=== PATIENT | male | born 1975 | race Caucasian/White ===

== ENCOUNTER 2017-12-25 16:21 | Emergency (ER) | payer OTHER ==
[2017-12-25] MEDS ORDERED: PROL80 PO (16:32)
[2017-12-25] MEDS ORDERED: BUPR200T34 PO (16:32)
[2017-12-25] MEDS ORDERED: LEVO100T95 PO (16:32)
--- NOTE | 2017-12-25 16:57 | ER Report ---
History and Physical Time Seen By MD: 16:46 Hx. of Stated Complaint: PT HERE FOR DETOX. HPI/ROS CHIEF COMPLAINT: detox from alcohol HISTORY OF PRESENT ILLNESS: PT states that he has approx 22 years of alochol abuse. Pt states that his last drink was an hour ago or so. PT wants to stop. Pt last went to rehab about 2 ys ago and states he was sober for 5 months but has been drinking ever since. + epigastric disomfort. no nausea.no vomiting or change in bm. Pt does chew tobacco but denies any other drug usage. Not sucidal or homicidal. REVIEW OF SYSTEMS: Constitutional: No fever, no chills. Eyes: No discharge. ENT: No sore throat. Cardiovascular: No chest pain, no palpitations. Respiratory: No cough, no shortness of breath. Gastrointestinal: N+ abdominal pain, no vomiting. Genitourinary: No hematuria. Musculoskeletal: No back pain. Skin: No rashes. Neurological: No headache. Allergies: Coded Allergies: trazodone (Verified Allergy, Unknown, 12/25/17) Home Meds Reported Medications Propranolol Hcl (PROPRANOLOL HCL) 80 Mg Capcr, 80 MG PO QDAY 12/25/17 Levothyroxine Sodium (SYNTHROID) 100 Mcg Tablet, 100 MCG PO QDAY 12/25/17 Bupropion HCl (Bupropion HCl ER) 200 Mg Tablet.er, QDAY 12/25/17 Past Medical/Surgical History Pmhx: thyroid ds Pshx:non contrib Reviewed Nurses Notes: Yes Old Medical Records Reviewed: Yes Hx Substance Use Disorder: No Hx Alcohol Use: Yes (PINT DAILY, SOMETIMES MORE) Constitutional Vital Sign - Last 24 Hours 12/25/17 16:27 Temp 97.9 Pulse 106 Resp 20 B/P (MAP) 143/96 Pulse Ox 94 O2 Delivery Room Air Physical Exam General Appearance: The patient is alert, has no immediate need for airway protection and no signs of toxicity. Eyes: Pupils equal and round no pallor or injection, EOMI ENT: no pharyngeal erythema or exudates, Mucous membranes are moist Respiratory: There are no retractions, lungs are clear to auscultation. Cardiovascular: Tachy. pulses are equal and symmetrical Gastrointestinal: Abdomen is soft and non tender, no masses, bowel sounds normal, no guarding, no rigidity or rebound Neurological: Cranial nerves II-XII grossly intact, no sensory or motor loss Skin: Warm and dry, no rashes. Musculoskeletal: Neck is supple non tender, no vertebral tenderness Extremities are nontender, non swollen and have full range of motion. DIFFERENTIAL DIAGNOSIS: After history and physical exam differential diagnosis was considered for dehydrated, electrolyte abnl, gastritits, pancreatitis, behavioral disorder Medical Decision Making Data Points Result Diagram: 12/25/17 1703 12/25/17 1703 Laboratory Hematology Test 12/25/17 17:03 12/25/17 18:00 Red Blood Count 5.90 M/uL (4.00-5.60) Mean Corpuscular Volume 84.2 fL (80.0-96.0) Mean Corpuscular Hemoglobin 30.1 pg (26.0-33.0) Mean Corpuscular Hemoglobin Concent 35.7 g/dL (32.0-36.0) Red Cell Distribution Width 14.2 % (11.5-14.5) Mean Platelet Volume 8.8 fL (7.2-11.1) Neutrophils (%) (Auto) 51.2 % (39.4-72.5) Lymphocytes (%) (Auto) 39.3 % (17.6-49.6) Monocytes (%) (Auto) 4.9 % (4.1-12.4) Eosinophils (%) (Auto) 4.1 % (0.4-6.7) Basophils (%) (Auto) 0.5 % (0.3-1.4) Nucleated RBC Relative Count (auto) 0.1 /100WBC Neutrophils # (Auto) 3.0 K/uL (2.0-7.4) Lymphocytes # (Auto) 2.3 K/uL (1.3-3.6) Monocytes # (Auto) 0.3 K/uL (0.3-1.0) Eosinophils # (Auto) 0.2 K/uL (0.0-0.5) Basophils # (Auto) 0.0 K/uL (0.0-0.1) Nucleated RBC Absolute Count (auto) 0.00 K/uL Sodium Level 148 mmol/L (137-145) Potassium Level 3.1 mmol/L (3.5-5.0) Chloride Level 108 mmol/L (98-107) Carbon Dioxide Level 24 mmol/L (22-30) Blood Urea Nitrogen 4 mg/dl (9-21) Creatinine 0.90 mg/dl (0.66-1.25) Glomerular Filtration Rate Calc > 60.0 Random Glucose 102 mg/dl (75-110) Calcium Level 8.5 mg/dl (8.4-10.2) Magnesium Level 2.1 mg/dl (1.7-2.2) Total Bilirubin 0.4 mg/dl (0.2-1.3) Aspartate Amino Transf (AST/SGOT) 22 U/L (0-35) Alanine Aminotransferase (ALT/SGPT) 23 U/L (0-56) Alkaline Phosphatase 76 U/L (0-126) Total Protein 7.6 g/dl (6.3-8.2) Albumin 4.7 g/dl (3.5-5.0) Lipase 180 U/L (23-300) Salicylates Level < 10 mg/L Salicylate Last Dose Date unknown Acetaminophen Level < 10 ug/ml Serum Alcohol 271 mg/dl Chemistry Test 12/25/17 17:03 12/25/17 18:00 White Blood Count 5.8 k/uL (4.5-11.0) Red Blood Count 5.90 M/uL (4.00-5.60) Hemoglobin 17.8 g/dL (14.0-18.0) Hematocrit 49.7 % (42.0-52.0) Mean Corpuscular Volume 84.2 fL (80.0-96.0) Mean Corpuscular Hemoglobin 30.1 pg (26.0-33.0) Mean Corpuscular Hemoglobin Concent 35.7 g/dL (32.0-36.0) Red Cell Distribution Width 14.2 % (11.5-14.5) Platelet Count 258 K/uL (150-450) Mean Platelet Volume 8.8 fL (7.2-11.1) Neutrophils (%) (Auto) 51.2 % (39.4-72.5) Lymphocytes (%) (Auto) 39.3 % (17.6-49.6) Monocytes (%) (Auto) 4.9 % (4.1-12.4) Eosinophils (%) (Auto) 4.1 % (0.4-6.7) Basophils (%) (Auto) 0.5 % (0.3-1.4) Nucleated RBC Relative Count (auto) 0.1 /100WBC Neutrophils # (Auto) 3.0 K/uL (2.0-7.4) Lymphocytes # (Auto) 2.3 K/uL (1.3-3.6) Monocytes # (Auto) 0.3 K/uL (0.3-1.0) Eosinophils # (Auto) 0.2 K/uL (0.0-0.5) Basophils # (Auto) 0.0 K/uL (0.0-0.1) Nucleated RBC Absolute Count (auto) 0.00 K/uL Glomerular Filtration Rate Calc > 60.0 Calcium Level 8.5 mg/dl (8.4-10.2) Magnesium Level 2.1 mg/dl (1.7-2.2) Total Bilirubin 0.4 mg/dl (0.2-1.3) Aspartate Amino Transf (AST/SGOT) 22 U/L (0-35) Alanine Aminotransferase (ALT/SGPT) 23 U/L (0-56) Alkaline Phosphatase 76 U/L (0-126) Total Protein 7.6 g/dl (6.3-8.2) Albumin 4.7 g/dl (3.5-5.0) Lipase 180 U/L (23-300) Salicylates Level < 10 mg/L Salicylate Last Dose Date unknown Acetaminophen Level < 10 ug/ml Serum Alcohol 271 mg/dl Toxicology Test 12/25/17 17:03 12/25/17 18:00 Salicylates Level < 10 mg/L Salicylate Last Dose Date unknown Acetaminophen Level < 10 ug/ml Serum Alcohol 271 mg/dl Urinalysis Test 12/25/17 18:00 ED Course/Re-evaluation Clinical Indication for ER IV: Hydration, IV Access ED Course check labs and give fluids 12/25/2017 5:53:52 pm Pts potassium low will replace 12/25/2017 6:14:[address] Hernadez who will admit. Decision to Disposition Date: Dec 25, 2017 Decision to Disposition Time: 18:14 Depart Departure Latest Vital Signs Vital Signs Date Time Temp Pulse Resp B/P (MAP) Pulse Ox O2 Delivery O2 Flow Rate FiO2 12/25/17 16:27 97.9 106 20 143/96 94 Room Air Impression: Primary Impression: Alcohol abuse Additional Impressions: ALCOHOL DEPENDENCE WITH INTOXICATION, UNSPECIFIED HYPOKALEMIA Condition: Condition Unchanged Disposition: XFER TO [facility] Problem Qualifiers SUZE DIXON DO Dec 25, 2017 16:56
[2017-12-25] MEDS ORDERED: THIAMINE HCL(*) 200 MG/2 ML IN 100 MG, FOLIC ACID(*) 50 MG/10 ML INJ 1 MG, MULTIVITAMIN... IV ONE (17:01)
[2017-12-25 17:39] LABS: PLATELET COUNT, AUTOMATED 258 K/uL (150-450)
[2017-12-25] MEDS ORDERED: POTASSIUM CHL 20 MEQ TABCR PO ONE (17:50)
[2017-12-25 18:30] VITALS: BP 146/94
[2017-12-26] MEDS ORDERED: LISI20TA29 PO (09:14)
== END 2017-12-25 18:55 ==
LOC: ER 16:41
DX: F10.220 Alcohol dependence with intoxication, uncomplicated (principal); E87.6 Hypokalemia
CPT/HCPCS: 80305; 80320; 80329; 81001; 83690; 83735; 84443; 85025; 96365; 99284; J3411; J3475; J7030; 82040; 82247; 82310; 82374; 82435; 82565; 82947; 84075; 84132; 84155; 84295; 84450; 84460; 84520

== ENCOUNTER 2017-12-25 18:48 | Inpatient (IN) | payer OTHER ==
[~2017-12-25] VITALS: Ht 177.8 cm; Wt 79.4 kg
[~2017-12-25 18:48] MED LIST: BUPR200T34 PO; LEVO100T95 PO; PROL80 PO
[2017-12-25] MEDS ORDERED: MAG HYD/AL HYD/SIMETH 30ML UDC PO PRN (18:50)
[2017-12-25 19:09] VITALS: BP 148/98
[2017-12-25] MEDS: NICOTINE POLACRILEX 2 MG GUM PO PRN (19:27)
[2017-12-25] MEDS: DIAZEPAM 10 MG TAB PO PRN ×2 (19:27→23:59)
[2017-12-25] MEDS: PROPRANOLOL HCL 20 MG TAB PO SCH (20:53)
[2017-12-25 23:55] VITALS: BP 123/67
[2017-12-26] VITALS (7 sets, daily range): BP systolic 105–150; BP diastolic 65–90
[2017-12-26] MEDS: DIAZEPAM 10 MG TAB PO PRN ×5 (01:29→22:21)
[2017-12-26] MEDS: LEVOTHYROXINE SOD 0.1 MG TAB PO SCH (05:39)
[2017-12-26] MEDS: FOLIC ACID 1 MG TAB PO SCH (08:16)
[2017-12-26] MEDS: THIAMINE HCL 100 MG TAB PO SCH (08:16)
[2017-12-26] MEDS: PROPRANOLOL HCL 20 MG TAB PO SCH ×2 (08:16→20:56)
[2017-12-26] MEDS: MULTIVITAMINS TAB PO SCH (08:16)
[2017-12-26] MEDS ORDERED: PROPRANOLOL HCL LA 60 MG CAPCR PO SCH (09:00)
[2017-12-26] MEDS ORDERED: buPROPion SR 100 MG TABSR PO SCH (09:00)
[2017-12-26] MEDS ORDERED: LISI20TA29 PO (09:14)
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
[2017-12-26] MEDS: NICOTINE POLACRILEX 2 MG GUM PO PRN ×2 (15:59→21:51)
[2017-12-27 04:02] VITALS: BP 128/90
[2017-12-27] MEDS: DIAZEPAM 10 MG TAB PO PRN (04:21)
[2017-12-27] MEDS: LEVOTHYROXINE SOD 0.1 MG TAB PO SCH (04:21)
[2017-12-27 06:37] LABS: PLATELET COUNT, AUTOMATED 196 K/uL (150-450)
[2017-12-27] MEDS: PROPRANOLOL HCL 20 MG TAB PO SCH (08:27)
[2017-12-27] MEDS: FOLIC ACID 1 MG TAB PO SCH (08:27)
[2017-12-27] MEDS: THIAMINE HCL 100 MG TAB PO SCH (08:27)
[2017-12-27] MEDS: MULTIVITAMINS TAB PO SCH (08:28)
[2017-12-27 08:30] VITALS: BP 138/88
[2017-12-27] MEDS: NICOTINE POLACRILEX 2 MG GUM PO PRN ×4 (08:42→14:38)
[2017-12-27] MEDS ORDERED: buPROPion SR 100 MG TABSR PO SCH (09:00)
[2017-12-27] MEDS ORDERED: MULT-1379 PO (12:08)
[2017-12-27] MEDS ORDERED: NICO-219 BC (12:10)
[2017-12-27] MEDS ORDERED: HYDR50CA48 PO (12:14)
[2017-12-27 13:00] VITALS: BP 124/82
[2017-12-28] MEDS ORDERED: buPROPion SR 100 MG TABSR PO SCH (09:00)
--- NOTE | 2017-12-28 18:06 | DISCHARGE SUMMARY ---
Patient was seen at approximately 0900 hours in the a.m. of December 27, 2017 for note concerning this dictation. FINAL DIAGNOSES PER DSM-V Alcohol use disorder severe. Rule out posttraumatic stress disorder. History of hypothyroidism. History of hypertension. Patient having supportive family. REASON FOR ADMISSION This is a very polite 42-year-old male. Patient was admitted on a voluntary basis for alcohol withdrawal treatment and subsequent entrance into alcohol rehab. Please see H and P for full details. Patient very pleasant on the unit, very cooperative, taking an active role in his treatment. Alcohol withdrawal was treated to completion and considered moderate in nature. Patient was given diazepam per [facility] protocol. Patient's meds were also looked at while the patient was on the unit. Minor alterations were made in outpatient meds. Patient continued to improve. Alcohol withdrawal was treated to completion and patient cooperated with staff in working to get to [place], [place] for [facility] rehab facility for alcoholism. PHYSICAL EXAMINATION GENERAL: Please see emergency room note. Notable for a 42-year-old male in no acute medical distress. VITAL SIGNS: At the time of admission, temperature 97.6, pulse 106, respiratory rate 20, blood pressure 143/96 and pulse oximetry 94 on room air. At the time of discharge from [facility], temperature 98.4, pulse 80, respiratory rate 16, blood pressure 124/82 and pulse oximetry 96 on room air. LABORATORY DATA TSH was 0.97 due to effects of interference with acute alcohol intoxication on TSH. It was redrawn on the [facility] Unit and found to still be in normal limits at 3.48. Free T4 was 0.95 and free T3 was pending at the time of this dictation in this patient who is currently taking 100 mcg of Synthroid. CBC was overall unremarkable. CMP notable for lipase in normal level, magnesium of 2.1 in normal range with a potassium low at 3.1. Hepatic function testing was intact. Urinalysis unremarkable. Toxicology screen was negative for substances of abuse with a serum alcohol level of 271 upon admission. MENTAL STATUS EXAMINATION AT THE TIME OF DISCHARGE GENERAL APPEARANCE, BEHAVIOR AND ATTITUDE: This is a very polite, cooperative 42-year-old male, certainly taking an active role in his treatment. Alcohol withdrawal considered complete. Patient indicating a full understanding of entering rehab program in [place], [place]. Patient making good eye contact. No bizarre mannerisms or tics. No periods of tearfulness. SPEECH: Within normal limits, regular rate, rhythm, volume and tone. MOOD: Described as good. AFFECT: Full and bright. . THOUGHT PROCESSES: Logical, goal directed. No loose associations or flight of ideas. THOUGHT CONTENT: Free of auditory or visual hallucinations, ideas of reference, thought broadcastings, delusions, obsessions, compulsions. Patient adamantly denying suicidal or homicidal ideation. SENSORIUM: Clear. COGNITION: Alert and oriented to person, place, time and situation. MEMORY: Immediate, recent and remote estimated intact. INTELLIGENCE: Average based on interview. INSIGHT AND JUDGMENT: Considered intact and appropriate for entrance into [facility] rehab program. RESULTS OF TESTING IMAGING: None. LABORATORY DATA: See above. CONSULTATIONS: None. TREATMENT Patient received medications, participated in individual and group therapy. HOSPITAL COURSE Patient was admitted for alcohol withdrawal treatment, which was managed and treated to completion via CIWA protocol and diazepam. Patient's outpatient medications were altered minimally. Patient continued to respond, was discharged to home. CONDITION OF PATIENT ON DISCHARGE Stable. Considered minimal risk to himself or others and appropriate for ongoing treatment at rehab center in [place]. DISPOSITION Patient again discharged to home in the care of his parents. Patient would follow up in [place]. DISCHARGE MEDICATIONS 1. Multivitamin with minerals daily. 2. Inderal 20 mg tablet twice daily a.m. and at bedtime. 3. Synthroid 100 mcg daily. 4. Wellbutrin SR 100 mg q.a.m. and 100 mg q.noon. 5. Patient encouraged to continue nicotine replacement and stop tobacco consumption. 6. Prescription for hydroxyzine 50-100 mg p.o. q.8 hours for anxiety and insomnia. Patient would continue to abstain from all alcohol. Crisis line was given should symptoms return. Risks, benefits and alternatives of the above discharge plan were discussed. Informed consent was given to proceed with above discharge plan by this competent patient and patient's parents, present at the time of discharge, with whom he lives. HAJA
== END 2017-12-27 16:30 | disposition home or self-care (01) | DRG 897 ==
LOC: BHS 18:48
PROVIDERS: ADMIT Psychiatry & Neurology Psychiatry; ATTEND Psychiatry & Neurology Psychiatry
DX: F10.230 Alcohol dependence with withdrawal, uncomplicated (principal); E03.9 Hypothyroidism, unspecified; I10 Essential (primary) hypertension; F43.12 Post-traumatic stress disorder, chronic; Y90.8 Blood alcohol level of 240 mg/100 ml or more; Z88.8 Allergy status to other drugs, medicaments and biological substances; Z81.1 Family history of alcohol abuse and dependence
CPT/HCPCS: 36415; 82040; 82247; 82310; 82374; 82435; 82565; 82947; 83735; 84075; 84132; 84155; 84295; 84439; 84443; 84450; 84460; 84481; 84520; 85025

== ENCOUNTER 2018-04-26 15:29 | Inpatient (IN) | payer OTHER ==
[~2018-04-26] VITALS: Ht 177.8 cm; Wt 81.6 kg
[~2018-04-26 15:29] MED LIST changes: +HYDR50CA48 PO; +LISI20TA29 PO; +MULT-1379 PO; +NICO-219 BC
[2018-04-26 15:55] VITALS: BP 130/97
[2018-04-26] MEDS ORDERED: DIAZEPAM 10 MG TAB PO PRN (16:15)
[2018-04-26] MEDS ORDERED: MAG HYD/AL HYD/SIMETH 30ML UDC PO PRN (16:15)
[2018-04-26] MEDS: DIAZEPAM 10 MG TAB PO PRN ×2 (16:53→20:58)
[2018-04-26] MEDS: NICOTINE POLACRILEX 2 MG GUM PO PRN (16:53)
[2018-04-26] MEDS ORDERED: hydrOXYzine PAMOATE 25 MG CAP PO PRN (19:00)
[2018-04-26 20:33] VITALS: BP 130/82
[2018-04-27 01:01] VITALS: BP 135/98
[2018-04-27] MEDS: LEVOTHYROXINE SOD 0.1 MG TAB PO SCH (06:14)
[2018-04-27 08:00] VITALS: BP 128/98
[2018-04-27] MEDS: FOLIC ACID 1 MG TAB PO SCH (08:16)
[2018-04-27] MEDS: PROPRANOLOL HCL LA 80 MG CAPCR PO SCH (08:16)
[2018-04-27] MEDS: THIAMINE HCL 100 MG TAB PO SCH (08:16)
[2018-04-27] MEDS: MULTIVITAMINS PO SCH (08:16)
[2018-04-27] MEDS: buPROPion SR 100 MG TABSR PO SCH (08:17)
[2018-04-27] MEDS: DIAZEPAM 10 MG TAB PO PRN ×2 (10:08→21:10)
[2018-04-27 12:00] VITALS: BP 126/80
--- NOTE | 2018-04-27 14:51 | SCHAAF H&P ---
DATE OF ADMISSION: April 26, 2018 ATTENDING PHYSICIAN Christiano Pugh MD Patient was seen 27 April 2018 at approximately 1000 for note concerning this dictation. PRESENTING PROBLEM/CHIEF COMPLAINT Patient here for help with alcohol withdrawal. HISTORY OF PRESENT ILLNESS This is a pleasant, 42-year-old male who was most notably on the unit in December 2017. Patient discharged at that time to attend residential rehab program. Patient reports he went to this program which funding was helped by his job at [employer]. Patient reported it was a one-month rehab program, and he left against medical advice. Patient reports after leaving the program, he was able to abstain from alcohol for about one week before relapsing. Patient currently is not working, remains on a disability through his [employer] job, and they are wanting to maybe wait until the following summer to allow him back to work as long as he is sober. Patient does agree that this may give him too much time to consider relapsing on alcohol. Patient admits to some increasing depressive-type symptoms at times. He has no thoughts of suicide except for fleeting thoughts once in a while. Patient states he feels he has social anxiety at times in the absence of alcohol and denies any other symptoms of psychiatric concern. Patient currently reporting his mood today during initial interview as a 5 or 6/10 to the good. Patient has mild symptoms of PTSD from a negative event that occurred under the influence of alcohol prior to last December admission. Patient reports overall, though, that these intrusive thoughts are lessened significantly since last admission. Patient did not want to go into further discussion or detail. Patient denying any other symptoms of psychiatric concern. MENTAL HEALTH HISTORY Patient has been an inpatient up to six times and entering rehab after inpatient status up to six or seven times. Patient most notably in rehab center in [place] in late December 2017. Patient is currently prescribed Synthroid, propranolol, and Wellbutrin by outpatient provider. Patient is continuing to take these medications. Patient states he has recently attended a couple of AA meetings, but does not want to continue. Patient has recently started with an outpatient therapist, Jenni, and he says this has been going well. He has been seeing her for a month and discussing both his substance use disorder and PTSD symptoms. Patient has worked for over 20 years on the [employer], and they continue to fund his inpatient rehab stays where patient is currently considered disabled and receiving some funding as they wait to reinstate him on work status. FAMILY PSYCHIATRIC HISTORY Patient reports grandfather on the mother's side and uncles on the mother's side suffer from alcoholism. Not believed to be any suicides in the family. No other significant psychiatric illness is known. PAST MEDICAL HISTORY The patient reports being diagnosed with hypothyroidism and hypertension throughout the years. Patient does not believe that his hypertension is familial in nature and may be a reflection of drinking behaviors. Denies any other medical concerns currently. ALLERGIES Patient has an allergy to TRAZODONE which is significant in that it was the source of patient developing priapism, requiring surgical intervention. SOCIAL HISTORY Patient born in [place], raised [place]. His parents were at the time of his and still are. He has one brother. He reports overall good family relationships, a good childhood free of emotional, physical, or sexual abuse. Patient is a high school graduate, did not attend any college, and has never been in the . Patient has been and three times. No children. He has worked for over 20 years for the [employer] and overall enjoyed his job. Patient currently disabled waiting for his [employer] job to allow him to return to work. Currently living with his parents in their home here in [place] trying to get back on his feet after a recent divorce and continued struggles with alcoholism. LEGAL HISTORY Patient has a legal history significant for DUI times two. SUBSTANCE ABUSE HISTORY Patient reports chewing tobacco and remote experimentation with other drugs, but alcohol remains primary drug of concern. PHYSICAL EXAMINATION Please see emergency room note. Notable for: GENERAL: A 42-year-old male in no acute medical distress. VITAL SIGNS: At time of admission, temperature 97.9, pulse 78, respiratory rate 20, blood pressure 160/101, and pulse oximetry 93% on room air. LABORATORY DATA CBC remarkable only for RBCs slightly elevated at 5.76. CMP unremarkable. TSH 2.97. Urinalysis unremarkable. Toxicology screen negative for substances of abuse with a serum alcohol level of 87. MENTAL STATUS EXAMINATION GENERAL APPEARANCE, BEHAVIOR, AND ATTITUDE: This is a polite, cooperative, 42-year-old male continuing to struggle with alcohol use disorder. No bizarre mannerisms or tics. No periods of tearfulness. Patient making good eye contact, interacting well. Some tremor associated with alcohol withdrawal ongoing. SPEECH: Within normal limits. Regular rate, rhythm, volume, and tone. MOOD: Described as improving. AFFECT: Minimally constricted and mood congruent. THOUGHT PROCESSES: Appear logical, goal directed. No loose associations or flight of ideas could be detected. THOUGHT CONTENT: Free of auditory or visual hallucinations, ideas of reference, thought broadcastings, delusions, obsessions, compulsions. Patient adamantly denying suicidal or homicidal ideation in the absence of alcohol use, admitting to fleeting suicidal thoughts prior to admission. SENSORIUM: Clear. COGNITION: Alert and oriented to person, place, time, and situation. MEMORY: Immediate, recent, and remote estimated intact. INTELLIGENCE: Average based on interview and previous knowledge of this patient. INSIGHT AND JUDGMENT: Considered grossly intact, patient coming to the [facility] on a voluntary basis for help with alcohol withdrawal, and considered intact in the absence of alcohol use. ASSESSMENT This is a pleasant, 42-year-old male who has been on the inpatient unit here in December 2017 where he subsequently entered a rehabilitation program, patient relapsing fairly soon afterwards. He has now returned to get help with alcohol withdrawal again. Will treat alcohol withdrawal to completion and continue to look at ways to help this patient abstain once he departs the unit. DIAGNOSES 1. Alcohol withdrawal. 2. Alcohol use disorder, severe. 3. History of probable posttraumatic stress disorder with improvement in symptoms. 4. Financial and employment stressors. 5. Generalized stressors of alcoholism. 6. Patient apparently having a supportive family. PLAN 1. Admit to the unit. 2. Necessary precautions will be implemented. 3. Patient will participate in individual and group therapy. 4. Medications will be continued from outpatient basis. 5. Will treat alcohol withdrawal to completion with Valium per [facility] protocol. 6. Estimated length of stay three days. MTDD
[2018-04-27 15:55] VITALS: BP 128/84
[2018-04-27] MEDS: NICOTINE POLACRILEX 2 MG GUM PO PRN (16:07)
[2018-04-27 21:24] VITALS: BP 136/82
[2018-04-27 21:40] VITALS: BP 136/82
[2018-04-28] MEDS: LEVOTHYROXINE SOD 0.1 MG TAB PO SCH (06:11)
[2018-04-28 06:30] VITALS: BP 116/76
[2018-04-28 07:55] VITALS: BP 116/66
[2018-04-28] MEDS: MULTIVITAMINS PO SCH (08:37)
[2018-04-28] MEDS: buPROPion SR 100 MG TABSR PO SCH (08:37)
[2018-04-28] MEDS: THIAMINE HCL 100 MG TAB PO SCH (08:37)
[2018-04-28] MEDS: PROPRANOLOL HCL LA 80 MG CAPCR PO SCH (08:37)
[2018-04-28] MEDS: FOLIC ACID 1 MG TAB PO SCH (08:37)
[2018-04-28] MEDS: NICOTINE POLACRILEX 2 MG GUM PO PRN ×3 (09:24→18:17)
--- NOTE | 2018-04-28 11:25 | BHS Progress Note ---
[facility] - Subjective Progress Notes Subjective Pt seen in conference room. Pt last was medicated with valium last night at 2100. He still has tremor, and mild subjective cravings (but pt also has underlying essential tremor...). Pt c/o very poor sleep, generally 3-4 hours per night. Also reporting ongoing depression, rating mood at 5/10, does have passive wishes at times, though no active SI nor plan. Will continue wellbutrin, but will also add remeron starting tonight to augment antidepressant efficacy and also to help with sleep. Pt asking about Vivitrol (long acting naltrexone IM)-- we do not have it on formulary, but I have ordered it from local pharmacy, and family will pick it up and we can administer it tomorrow. Pt has had it before and found it helpful for maintaining sobriety. Pt has not had any opiates in past week, also pt understands risk that if he gets into an accident or serious medical problem, he cannot have opiate pain medication, nor codeine cough syrup. Continue to monitor withdrawa symptoms via [facility] protocol. Suicidal Ideation: None Homicidal Ideation: None [facility] - Objective Physical Exam Vital Signs Vital Signs 04/28/18 07:55 Temp 98.7 Pulse 67 Resp 16 B/P (MAP) 116/66 (83) Pulse Ox 93 O2 Delivery Room Air Muscle Strength and Tone: WNL Gait and Station: Steady, Other (tremor of both hands notable) [facility] Medications Reviewed: Side Effects, Benefits of Medication, Risks Allergies Reviewed: Yes Mental Status Exam General Appearance: Well Groomed, Good Eye Contact, Cooperative, Polite, Good Interaction Speech: Clear, Spontaneous, Normal Rate, Normal Rhythm, Normal Volume, Normal Tone Mood: Dysthmic/Depressed Affect: Calm, Sad Thought Process: Organized, Logical, Goal Directed Thought Content: No Suicidal Ideation, No Homicidal Ideation, No Delusions, No Auditory Halllucinations, No Visual Hallucinations, No Thought Broadcasting, No Ideas of Reference, No Obsessions, No Compulsions, No Other Sensorium: Clear Cognition: Alert & Oriented-Person, Alert & Oriented-Place, Alert & Oriented- Time, Kkflt-Ctcxdica-Rcyebitvf Memory: Immediate, Recent, Remote Intelligence: Average Insight Judgment: Fair [facility] Assessment and Plan Ujmh-da-Qinb Encounter Date: Apr 28, 2018 Oidz-fc-Prsa Encounter Time: 09:00 [facility] Plan: Necessary Precautions, Individual/Group Therapy, Admin/Titrate Meds, Educate Patient Tobacco Medications: Started Multpiple Antipsychotics Used: No Problems: (1) Alcohol use disorder, severe, dependence (2) Alcohol withdrawal (3) PTSD (post-traumatic stress disorder) (4) Persistent depressive disorder with anxious distress, currently moderate BENNY FOSTER MD Apr 28, 2018 11:25
[2018-04-28 11:38] VITALS: BP 120/96
[2018-04-28 17:33] VITALS: BP 134/88
[2018-04-28] MEDS ORDERED: MIRTAZAPINE 15 MG TAB PO SCH (21:00)
[2018-04-29 06:05] VITALS: BP 126/87
[2018-04-29] MEDS: LEVOTHYROXINE SOD 0.1 MG TAB PO SCH (06:05)
[2018-04-29 08:05] VITALS: BP 128/88
[2018-04-29] MEDS: MULTIVITAMINS PO SCH (08:31)
[2018-04-29] MEDS: buPROPion SR 100 MG TABSR PO SCH (08:31)
[2018-04-29] MEDS: NICOTINE POLACRILEX 2 MG GUM PO PRN (08:31)
[2018-04-29] MEDS: FOLIC ACID 1 MG TAB PO SCH (08:31)
[2018-04-29] MEDS: THIAMINE HCL 100 MG TAB PO SCH (08:31)
[2018-04-29] MEDS: PROPRANOLOL HCL LA 80 MG CAPCR PO SCH (08:31)
[2018-04-29] MEDS ORDERED: MIRT-1 PO (10:54)
[2018-04-29] MEDS ORDERED: MULT-859 PO (10:57)
[2018-04-29] MEDS ORDERED: FOLI-68 PO (10:57)
[2018-04-29] MEDS ORDERED: THIA100T2 PO (10:59)
[2018-04-29] MEDS ORDERED: BUPR200T18 PO (10:59)
[2018-04-29] MEDS ORDERED: NICO-219 BC (11:00)
[2018-04-29] MEDS ORDERED: NALTREXONE HCL 50 MG TAB PO ONE (11:00)
--- NOTE | 2018-04-29 11:33 | BHS Discharge Summary ---
[facility] Discharge Summary Filz-cb-Pdde Encounter Date: Apr 29, 2018 Yodh-rw-Eeor Encounter Time: 08:30 Reason-Hosp/Final Diag (DSM-V): (1) Alcohol use disorder, severe, dependence Hospital Course & Plan: Pt was admitted to [facility], and detoxed as per the [facility] protocol using valium. He required minimal doses, and detox was uncomplicated. He was active in his treatment at all times, attending groups and individual therapy sessions, and engaging in a supportive way in the [place]. We started remeron 15 mg q hs in addition to his wellbutrin for increased antidepressant efficacy as well as to help with sleep-- this was well tolerated. We discussed ways to "prop up" his sobriety, including looking into [facility] in addition to AA. Pt inquired about naltrexone: he has taken it before briefly and felt it was helpful. We chose to give him an oral dose of 100 mg on day of discharge, which will cover him for at least next 2 days. We ordered the IM form from his pharmacy, and they should have it in tomorrow or Monday-- he will pick it up and have his local provider give him his injection. He will follow up with Katheryn De La Garza for medications management on 05/02 and with his therapist Jenni on May 10. At no time during his hospital stay did he express suicidal ideation. (2) Alcohol withdrawal (3) PTSD (post-traumatic stress disorder) (4) Persistent depressive disorder with anxious distress, currently moderate Physical Exam Latest Vital Signs Vital Signs 04/29/18 08:05 Temp 98.0 Pulse 70 Resp 16 B/P (MAP) 128/88 (101) Pulse Ox 96 O2 Delivery Room Air Mental Status Exam General Appearance: Well Groomed, Good Eye Contact, Cooperative, Polite, Good Interaction Speech: Clear, Spontaneous, Normal Rate, Normal Rhythm, Normal Volume, Normal Tone Mood: Euthymic Affect: Full and Appropriate, Calm Thought Process: Organized, Logical, Goal Directed Thought Content: No Suicidal Ideation, No Homicidal Ideation, No Delusions, No Auditory Halllucinations, No Visual Hallucinations, No Thought Broadcasting, No Ideas of Reference, No Obsessions, No Compulsions, No Other Sensorium: Clear Cognition: Alert & Oriented-Person, Alert & Oriented-Place, Alert & Oriented-T carlie, Ivpvu-Vxlwzsrg-Pdgshojhe Memory: Immediate, Recent, Remote Intelligence: Average Insight Judgment: Fair Departure Condition: Improved Discharge to: Home Discharge Instructions Home Meds Reported Medications Nicotine Polacrilex (NICORETTE) 2 Mg Gum, 2 MG BC Q1-2H PRN for NICOTINE REPLACEMENT, GUM 04/29/18 Bupropion Hcl (WELLBUTRIN SR) 200 Mg Tablet.er, 200 MG PO QDAY, TAB 04/29/18 Thiamine Mononitrate (VITAMIN B-1) 100 Mg Tablet, 100 MG PO DAILY 04/29/18 Multivits,Ca,Minerals/Iron/Fa (THERA-M TABLET) 1 Each Tablet, 1 EACH PO DAILY 04/29/18 Folic Acid (FOLIC ACID) 1 Mg Tablet, 1 MG PO QDAY, TAB 04/29/18 Mirtazapine (REMERON) 15 Mg Tablet, 15 MG PO QHS 04/29/18 Hydroxyzine Pamoate (HYDROXYZINE PAMOATE) 50 Mg Capsule, 50-100 MG PO Q8H PRN for ANXIETY/INSOMNIA, #90 CAPSULE 3 Refills 12/27/17 Propranolol Hcl (PROPRANOLOL HCL) 80 Mg Capcr, 80 MG PO QDAY 12/25/17 Levothyroxine Sodium (SYNTHROID) 100 Mcg Tablet, 100 MCG PO QAM, #30 3 Refills 12/25/17 Bupropion HCl (Bupropion HCl ER) 200 Mg Tablet.er, 200 MG PO QDAY 12/25/17 Discontinued Reported Medications Nicotine Polacrilex (NICORETTE) 2 Mg Gum, 2 MG BC 1-2 hours PRN for NICOTINE REPLACEMENT, GUM 12/27/17 Multivits,Th W-Fe,Other Min (THERA-M) 1 Each Tablet, 1 EACH PO 12/27/17 Multpiple Antipsychotics Used: No Diet: Regular Activity: As Tolerated Special Instructions: Discharge home. ABSTAIN FROM ALCOHOL. Follow-up with primary provider for Naltrexone injection. Follow-up with intensive outpatient therapy and medication management. AA or equivalent recommended. Crisis line provided. BENNY FOSTER MD Apr 29, 2018 11:33
== END 2018-04-29 12:34 | disposition home or self-care (01) | DRG 897 ==
LOC: BHS 15:29
PROVIDERS: ADMIT Psychiatry & Neurology Psychiatry; ATTEND Psychiatry & Neurology Psychiatry
DX: F10.230 Alcohol dependence with withdrawal, uncomplicated (principal); F43.12 Post-traumatic stress disorder, chronic; F34.1 Dysthymic disorder; I10 Essential (primary) hypertension; Y90.4 Blood alcohol level of 80-99 mg/100 ml; E03.9 Hypothyroidism, unspecified; Z88.8 Allergy status to other drugs, medicaments and biological substances; Z81.1 Family history of alcohol abuse and dependence
CPT/HCPCS: Q0177

== ENCOUNTER 2018-06-21 18:53 | Emergency (ER) | payer OTHER ==
[~2018-06-21 18:53] MED LIST changes: +BUPR200T18 PO; +FOLI-68 PO; +MIRT-1 PO; +MULT-859 PO; +THIA100T2 PO
[2018-06-21] MEDS ORDERED: NS(*) 0.9% 1000 ML BAG 1,000 ML IV ONE (19:13)
[2018-06-21] MEDS ORDERED: ASPIRIN 81 MG CHEW PO ONE (19:15)
--- NOTE | 2018-06-21 19:21 | ER Inpatient Procedure ---
FREDDIE MURPHY MD Jun 21, 2018 19:21
[2018-06-21] MEDS ORDERED: ALBUTEROL/IPRATROPIUM 3 ML NEB NEB ONE (19:30)
[2018-06-21 19:36] LABS: PLATELET COUNT, AUTOMATED 234 K/uL (150-450)
--- NOTE | 2018-06-21 20:39 | ER Report ---
History and Physical Time Seen By MD: 19:03 Hx. of Stated Complaint: got a shot of vivitrol on monday. had some problems with it last month but the doc wanted to try it again with him. is having some issues breathing today getting worse tonight HPI/ROS CHIEF COMPLAINT: Dyspnea HISTORY OF PRESENT ILLNESS: Patient received a shot of vivitrol this past Monday. He states he's noticed some increased work of breathing in last 24 hours. No fevers or chills. Denies any cough or congestion. Patient denies similar symptoms in the past. A cousin of the increased work of breathing patient presents to the emergency department for evaluation. He denies any chest pressure or pain. He denies abdominal pain. Denies nausea vomiting or diarrhea. REVIEW OF SYSTEMS: Constitutional: No fever, no chills. Eyes: No discharge. ENT: No sore throat. Cardiovascular: No chest pain, no palpitations. Respiratory: Shortness of breath Gastrointestinal: No abdominal pain, no vomiting. Genitourinary: No hematuria. Musculoskeletal: No back pain. Skin: No rashes. Neurological: No headache. Allergies: Coded Allergies: trazodone (Verified Allergy, Unknown, 06/21/18) Home Meds Reported Medications Nicotine Polacrilex (NICORETTE) 2 Mg Gum, 2 MG BC Q1-2H PRN for NICOTINE REPLACEMENT, GUM 04/29/18 Bupropion Hcl (WELLBUTRIN SR) 200 Mg Tablet.er, 200 MG PO QDAY, TAB 04/29/18 Thiamine Mononitrate (VITAMIN B-1) 100 Mg Tablet, 100 MG PO DAILY 04/29/18 Multivits,Ca,Minerals/Iron/Fa (THERA-M TABLET) 1 Each Tablet, 1 EACH PO DAILY 04/29/18 Folic Acid (FOLIC ACID) 1 Mg Tablet, 1 MG PO QDAY, TAB 04/29/18 Mirtazapine (REMERON) 15 Mg Tablet, 15 MG PO QHS 04/29/18 Hydroxyzine Pamoate (HYDROXYZINE PAMOATE) 50 Mg Capsule, 50-100 MG PO Q8H PRN for ANXIETY/INSOMNIA, #90 CAPSULE 3 Refills 12/27/17 Propranolol Hcl (PROPRANOLOL HCL) 80 Mg Capcr, 80 MG PO QDAY 12/25/17 Levothyroxine Sodium (SYNTHROID) 100 Mcg Tablet, 100 MCG PO QAM, #30 3 Refills 8/20/18 Bupropion HCl (Bupropion HCl ER) 200 Mg Tablet.er, 200 MG PO QDAY 12/25/17 Past Medical/Surgical History Has medical history for alcohol abuse. Hx Smoking: No Smoking Status: Never Smoker Exposure to Second Hand Smoke?: No Hx Substance Use Disorder: No Hx Alcohol Use: Yes Constitutional Vital Sign - Last 24 Hours 06/21/18 06/21/18 06/21/18 06/21/18 18:53 19:02 19:04 19:04 Temp 97.4 Pulse ??? 69 Resp 18 B/P (MAP) 153/92 153/92 (112) 153/92 (112) Pulse Ox 95 O2 Delivery Room Air 06/21/18 06/21/18 06/21/18 06/21/18 19:08 19:08 19:23 19:23 Pulse 70 70 79 79 Pulse Ox 95 95 95 95 06/21/18 06/21/18 06/21/18 06/21/18 19:30 19:30 19:38 19:38 Pulse 69 69 B/P (MAP) 146/98 (114) 146/98 (114) Pulse Ox 94 94 06/21/18 06/21/18 06/21/18 06/21/18 19:50 19:53 19:53 19:58 Pulse 68 65 65 74 Resp 18 18 Pulse Ox 95 95 06/21/18 06/21/18 06/21/18 06/21/18 20:00 20:08 20:23 20:30 Pulse 72 70 B/P (MAP) 132/94 (107) 135/91 (106) Pulse Ox 84 92 06/21/18 06/21/18 06/21/18 06/21/18 20:38 20:50 21:00 21:05 Pulse 63 64 66 B/P (MAP) 116/94 (101) Pulse Ox 92 92 93 06/21/18 06/21/18 21:05 21:20 Pulse 66 ??? Pulse Ox 93 Intake and Output 06/21/18 06/21/18 06/22/18 15:00 23:00 07:00 Intake Total 1000 ml Balance 1000 ml Physical Exam General/Constitutional: Patient is awake, alert, nontoxic and in no acute respiratory distress. Head: Normocephalic and atraumatic. Eyes: Conjunctival clear, Pupils are equal and reactive to light. Extraocular muscles are intact and symmetrical. Sclera are clear and anicteric. Ears:External canals are clear. Tympanic membranes are clear with normal landmarks and light reflex. Nares: No rhinorrhea or bleeding. Turbinates are pink and moist. Oropharyngeal: Mucous membranes are moist. There is no pharyngeal erythema or exudate. There are no palatal petechiae. Uvula is midline and symmetrical. Neck: Supple, no adenopathy. Cardiovascular: Heart is regular rate and rhythm without audible murmurs, rubs or gallops. Pulmonary: Lungs are clear to auscultation bilaterally. There are no wheezes, rales, or rhonchi. Chest rise is symmetrical Abdomen: Soft, nontender, no guarding or peritoneal signs. Extremities: No gross deformities, No peripheral cyanosis. Able to move all 4 extremities. Neuro: Alert and oriented X3, Skin: No rashes, skin is warm dry and well perfused. Medical Decision Making Data Points Result Diagram: 06/21/18192806/21/181928 Laboratory Hematology Test 06/21/18 19:29 06/21/18 19:32 Red Blood Count 5.33 M/uL (4.00-5.60) Mean Corpuscular Volume 85.2 fL (80.0-96.0) Mean Corpuscular Hemoglobin 29.6 pg (26.0-33.0) Mean Corpuscular Hemoglobin Concent 34.8 g/dL (32.0-36.0) Red Cell Distribution Width 13.3 % (11.5-14.5) Mean Platelet Volume 9.2 fL (7.2-11.1) Neutrophils (%) (Auto) % (39.4-72.5) Lymphocytes (%) (Auto) % (17.6-49.6) Monocytes (%) (Auto) % (4.1-12.4) Eosinophils (%) (Auto) % (0.4-6.7) Basophils (%) (Auto) % (0.3-1.4) Nucleated RBC Relative Count (auto) /100WBC Neutrophils # (Auto) K/uL (2.0-7.4) Lymphocytes # (Auto) K/uL (1.3-3.6) Monocytes # (Auto) K/uL (0.3-1.0) Eosinophils # (Auto) K/uL (0.0-0.5) Basophils # (Auto) K/uL (0.0-0.1) Nucleated RBC Absolute Count (auto) K/uL Neutrophils % (Manual) 42 % (39.4-72.5) Lymphocytes % (Manual) 27 % (17.6-49.6) Monocytes % (Manual) 5 % (4.1-12.4) Eosinophils % (Manual) 26 % (0.4-6.7) Basophils % (Manual) 0 % (0.3-1.4) Platelet Estimate Normal Sodium Level 140 mmol/L (137-145) Potassium Level 3.8 mmol/L (3.5-5.0) Chloride Level 105 mmol/L (98-107) Carbon Dioxide Level 26 mmol/L (22-30) Blood Urea Nitrogen 13 mg/dl (9-21) Creatinine 1.30 mg/dl (0.66-1.25) Glomerular Filtration Rate Calc > 60.0 Random Glucose 110 mg/dl (75-110) Calcium Level 9.2 mg/dl (8.4-10.2) Total Bilirubin 0.4 mg/dl (0.2-1.3) Aspartate Amino Transf (AST/SGOT) 24 U/L (0-35) Alanine Aminotransferase (ALT/SGPT) 26 U/L (0-56) Alkaline Phosphatase 94 U/L (0-126) Troponin I < 0.012 ng/ml Total Protein 7.7 g/dl (6.3-8.2) Albumin 4.7 g/dl (3.5-5.0) Influenza Virus Type A (PCR) Negative (NEGATIVE) Influenza Virus Type B (PCR) Negative (NEGATIVE) Chemistry Test 06/21/18 19:29 06/21/18 19:32 White Blood Count 10.6 k/uL (4.5-11.0) Red Blood Count 5.33 M/uL (4.00-5.60) Hemoglobin 15.8 g/dL (14.0-18.0) Hematocrit 45.4 % (42.0-52.0) Mean Corpuscular Volume 85.2 fL (80.0-96.0) Mean Corpuscular Hemoglobin 29.6 pg (26.0-33.0) Mean Corpuscular Hemoglobin Concent 34.8 g/dL (32.0-36.0) Red Cell Distribution Width 13.3 % (11.5-14.5) Platelet Count 234 K/uL (150-450) Mean Platelet Volume 9.2 fL (7.2-11.1) Neutrophils (%) (Auto) % (39.4-72.5) Lymphocytes (%) (Auto) % (17.6-49.6) Monocytes (%) (Auto) % (4.1-12.4) Eosinophils (%) (Auto) % (0.4-6.7) Basophils (%) (Auto) % (0.3-1.4) Nucleated RBC Relative Count (auto) /100WBC Neutrophils # (Auto) K/uL (2.0-7.4) Lymphocytes # (Auto) K/uL (1.3-3.6) Monocytes # (Auto) K/uL (0.3-1.0) Eosinophils # (Auto) K/uL (0.0-0.5) Basophils # (Auto) K/uL (0.0-0.1) Nucleated RBC Absolute Count (auto) K/uL Neutrophils % (Manual) 42 % (39.4-72.5) Lymphocytes % (Manual) 27 % (17.6-49.6) Monocytes % (Manual) 5 % (4.1-12.4) Eosinophils % (Manual) 26 % (0.4-6.7) Basophils % (Manual) 0 % (0.3-1.4) Platelet Estimate Normal Glomerular Filtration Rate Calc > 60.0 Calcium Level 9.2 mg/dl (8.4-10.2) Total Bilirubin 0.4 mg/dl (0.2-1.3) Aspartate Amino Transf (AST/SGOT) 24 U/L (0-35) Alanine Aminotransferase (ALT/SGPT) 26 U/L (0-56) Alkaline Phosphatase 94 U/L (0-126) Troponin I < 0.012 ng/ml Total Protein 7.7 g/dl (6.3-8.2) Albumin 4.7 g/dl (3.5-5.0) Influenza Virus Type A (PCR) Negative (NEGATIVE) Influenza Virus Type B (PCR) Negative (NEGATIVE) EKG/Imaging EKG Interpretation EKG shows normal sinus rhythm no ectopy no ST segment or T-wave abnormalities no julia. Monitor Interpretation: Normal Sinus Rhythm Imaging [place] [facility] [place] NAME[place] Piero Thornton : 1975 MR: [id number] V: [id number] EXAM DATE: [id number] ORDERING PHYSICIAN: FREDDIE MURPHY TECHNOLOGIST: Location: [facility] Patient: Piero Thornton : 1975 Visit/Account:[id number] Date of Sevice: 06/21/2018 AP CHEST 06/21/2018 7:13 PM. INDICATION: Asthma, cough. COMPARISON: None. FINDINGS: Lungs are well-expanded. There is no consolidation. No pleural effusion or pneumothorax. Heart size is normal. Mild rightward curvature of the thoracic spine. IMPRESSION: No acute abnormality. Report Dictated By: Vincenzo Trejo MD at 06/21/2018 9:13 PM Report E-Signed By: Vincenzo Trejo MD at 06/21/2018 9:14 PM WSN:[id number] ED Course/Re-evaluation ED Course Workup unremarkable. Chest x-ray EKG lab work unremarkable we will discharge home. Decision to Disposition Date: Jun 21, 2018 Decision to Disposition Time: 20:39 Depart Departure Latest Vital Signs Vital Signs Date Time Temp Pulse Resp B/P (MAP) Pulse Ox O2 Delivery O2 Flow Rate FiO2 06/21/18 21:20 ??? 06/21/18 21:05 93 06/21/18 21:00 116/94 (101) 06/21/18 19:58 18 06/21/18 19:02 97.4 Room Air Impression: Primary Impression: Dyspnea Condition: Improved Disposition: HOME OR SELF-CARE Patient Instructions: Dyspnea (ED) Additional Instructions: Follow-up with her primary care provider for evaluation of shortness of breath if symptoms persist greater than 7 days. Problem Qualifiers Primary Impression: Dyspnea Dyspnea type: unspecified Qualified Codes: R06.00 - Dyspnea, unspecified FREDDIE MURPHY MD Jun 21, 2018 20:39
[2018-06-21] MEDS ORDERED: ALBUTEROL 8 GM INHALER INH ONE (20:40)
[2018-06-21 21:00] VITALS: BP 116/94
--- NOTE | 2018-06-21 21:18 | RADIOLOGY IMAGING REPORT ---
FACILITY: [facility] [place] PATIENT NAME: Piero Thornton : 1975 MR: [id number] V: [id number] EXAM DATE: ORDERING PHYSICIAN: FREDDIE MURPHY TECHNOLOG[place] [facility] [place] : 1975 Visit/Account:[id number] Date of Sevice: 06/21/2018 AP CHEST 06/21/2018 7:13 PM. INDICATION: Asthma, cough. COMPARISON: None. FINDINGS: Lungs are well-expanded. There is no consolidation. No pleural effusion or pneumothorax. Heart size i s normal. Mild rightward curvature of the thoracic spine. IMPRESSION: No acute abnormality. Report Dictated By: Vincenzo Trejo MD at 06/21/2018 9:13 PM Report E-Signed By: Vincenzo Trejo MD at 06/21/2018 9:14 PM WSN:[id number]
--- NOTE | 2018-06-21 21:42 | EKG ---
[place] [facility] [place] NAME: NEWTON ABARCA : [id number] MR: [id number]: [id number] EXAM DATE: ORDERING PHYSICIAN: FREDDIE MURPHY TECHNOLOGIST: TARAN Louis Reason : CP Blood Pressure : / mmHG Vent. Rate : 062 BPM Atrial Rate : 062 BPM P-R Int : 154 ms QRS Dur : 110 ms QT Int : 388 ms P-R-T Axes : 069 063 053 degrees QTc Int : 393 ms Normal sinus rhythm Normal ECG No previous ECGs available Confirmed by Edilberto Romero ([id number]) on 06/21/2018 11:10:48 PM Referred By: Confirmed By:Edilberto Madison
== END 2018-06-21 21:18 | disposition home or self-care (01) ==
LOC: ER 19:11
DX: R06.00 Dyspnea, unspecified (principal); J45.909 Unspecified asthma, uncomplicated
CPT/HCPCS: 84484; 85025; 87502; 93005; 94640; 96360; 99284; J3535; J7030; J7620; 71045; 82040; 82247; 82310; 82374; 82435; 82565; 82947; 84075; 84132; 84155; 84295; 84450; 84460; 84520

== ENCOUNTER 2018-09-01 09:14 | Emergency (ER) | payer OTHER ==
--- NOTE | 2018-09-01 09:35 | ER Report ---
History and Physical Time Seen By MD: 09:35 Hx. of Stated Complaint: alcohol detox HPI/ROS CHIEF COMPLAINT: Requesting alcohol detox HISTORY OF PRESENT ILLNESS: She is a 42-year-old male who has prior admission back in April of 2018 for alcohol detox and subsequent period of sobriety for the last few months however is back to drinking anywhere from a pint of whiskey a day. He states that when he doesn't drink he starts to get shaky and sweaty and anxious. He admits his last drink was partially 5 hours ago. He prior detox inpatient admission in [place]. He denies any depression or suicidal ideation. He is here requesting detox help. Patient works at [employer]. REVIEW OF SYSTEMS: Respiratory: No cough, no dyspnea. Cardiovascular: No chest pain, no palpitations. Gastrointestinal: No vomiting, no abdominal pain. Musculoskeletal: No back pain. Allergies: Coded Allergies: naltrexone (Verified Allergy, Severe, SHORTNESS OF BREATH, 09/01/18) trazodone (Verified Allergy, Unknown, 09/01/18) Home Meds Reported Medications Bupropion Hcl (WELLBUTRIN SR) 200 Mg Tablet.er, 200 MG PO QDAY, TAB 04/29/18 Hydroxyzine Pamoate (HYDROXYZINE PAMOATE) 50 Mg Capsule, 50-100 MG PO Q8H PRN for ANXIETY/INSOMNIA, #90 CAPSULE 3 Refills 12/27/17 Propranolol Hcl (PROPRANOLOL HCL) 80 Mg Capcr, 80 MG PO QDAY 12/25/17 Levothyroxine Sodium (SYNTHROID) 100 Mcg Tablet, 100 MCG PO QAM, #30 3 Refills 12/25/17 Discontinued Reported Medications Nicotine Polacrilex (NICORETTE) 2 Mg Gum, 2 MG BC Q1-2H PRN for NICOTINE REPLACEMENT, GUM 04/29/18 Thiamine Mononitrate (VITAMIN B-1) 100 Mg Tablet, 100 MG PO DAILY 04/29/18 Multivits,Ca,Minerals/Iron/Fa (THERA-M TABLET) 1 Each Tablet, 1 EACH PO DAILY 04/29/18 Folic Acid (FOLIC ACID) 1 Mg Tablet, 1 MG PO QDAY, TAB 04/29/18 Mirtazapine (REMERON) 15 Mg Tablet, 15 MG PO QHS 04/29/18 Bupropion HCl (Bupropion HCl ER) 200 Mg Tablet.er, 200 MG PO QDAY 12/25/17 Past Medical/Surgical History History of alcohol abuse; history of hypothyroidism Hx Smoking: No Smoking Status: Never Smoker Exposure to Second Hand Smoke?: No Hx Substance Use Disorder: No Hx Alcohol Use: Yes Constitutional Vital Sign - Last 24 Hours 09/01/18 09/01/18 09:23 12:16 Temp 98.7 98.4 Pulse 71 71 Resp 20 16 B/P (MAP) 163/112 155/99 (117) Pulse Ox 94 96 O2 Delivery Room Air Room Air Physical Exam General Appearance: The patient is alert, has no immediate need for airway protection and no signs of toxicity. Eyes: Pupils equal and round no pallor or injection. ENT, Mouth: Mucous membranes are moist. Respiratory: There are no retractions, lungs are clear to auscultation. Cardiovascular: Regular rate and rhythm. Gastrointestinal: Abdomen is soft and non tender, no masses, bowel sounds normal. Neurological: Awake alert cooperative Skin: Warm and dry, no rashes. Musculoskeletal: Neck is supple non tender. Extremities are nontender, nonswollen and have full range of motion. Psychiatric: No suicidal or homicidal ideation. Medical Decision Making Data Points Result Diagram: 09/01/18 0935 09/01/18 0935 Laboratory Hematology Test 09/01/18 09:18 09/01/18 09:35 09/01/18 10:26 Urine Opiates Screen Negative Urine Barbiturates Screen Negative Ur Tricyclic Antidepressants Screen Negative Urine Phencyclidine Screen Negative Urine Amphetamines Screen Negative Urine Benzodiazepines Screen Negative Urine Cocaine Screen Negative Urine Cannabinoids Screen Negative Red Blood Count 5.82 M/uL (4.00-5.60) Mean Corpuscular Volume 84.1 fL (80.0-96.0) Mean Corpuscular Hemoglobin 29.2 pg (26.0-33.0) Mean Corpuscular Hemoglobin Concent 34.7 g/dL (32.0-36.0) Red Cell Distribution Width 14.1 % (11.5-14.5) Mean Platelet Volume 8.6 fL (7.2-11.1) Neutrophils (%) (Auto) 58.1 % (39.4-72.5) Lymphocytes (%) (Auto) 27.3 % (17.6-49.6) Monocytes (%) (Auto) 6.7 % (4.1-12.4) Eosinophils (%) (Auto) 7.4 % (0.4-6.7) Basophils (%) (Auto) 0.5 % (0.3-1.4) Nucleated RBC Relative Count (auto) 0.1 /100WBC Neutrophils # (Auto) 3.0 K/uL (2.0-7.4) Lymphocytes # (Auto) 1.4 K/uL (1.3-3.6) Monocytes # (Auto) 0.3 K/uL (0.3-1.0) Eosinophils # (Auto) 0.4 K/uL (0.0-0.5) Basophils # (Auto) 0.0 K/uL (0.0-0.1) Nucleated RBC Absolute Count (auto) 0.00 K/uL Sodium Level 144 mmol/L (137-145) Potassium Level 3.6 mmol/L (3.5-5.0) Chloride Level 107 mmol/L (98-107) Carbon Dioxide Level 26 mmol/L (22-30) Blood Urea Nitrogen 12 mg/dl (9-21) Creatinine 1.00 mg/dl (0.66-1.25) Glomerular Filtration Rate Calc > 60.0 Random Glucose 88 mg/dl (75-110) Calcium Level 8.8 mg/dl (8.4-10.2) Magnesium Level 2.0 mg/dl (1.7-2.2) Total Bilirubin 0.4 mg/dl (0.2-1.3) Aspartate Amino Transf (AST/SGOT) 72 U/L (0-35) Alanine Aminotransferase (ALT/SGPT) 70 U/L (0-56) Alkaline Phosphatase 83 U/L (0-126) Total Protein 8.1 g/dl (6.3-8.2) Albumin 4.8 g/dl (3.5-5.0) Salicylates Level < 10 mg/L Salicylate Last Dose Date unk Acetaminophen Level < 10 ug/ml Serum Alcohol < 10 mg/dl Urine Color Yellow Urine Clarity Clear Urine pH 7.0 pH (4.8-9.5) Urine Specific Adrian 1.028 Urine Protein 30 mg/dL (NEGATIVE) Urine Glucose (UA) Negative mg/dL (NEGATIVE) Urine Ketones Negative mg/dL (NEGATIVE) Urine Blood Negative (NEGATIVE) Urine Nitrite Negative (NEGATIVE) Urine Bilirubin Small (NEGATIVE) Urine Urobilinogen 0.2 mg/dL (0.2-1.9) Urine Leukocyte Esterase Negative (NEGATIVE) Urine RBC None /HPF (0-2/HPF) Urine WBC None /HPF (0-5/HPF) Urine Squamous Epithelial Cells Few /LPF (</=FEW) Urine Bacteria Negative /HPF (NONE-FEW) Urine Mucus Few /HPF (NONE-FEW) Chemistry Test 09/01/18 09:18 09/01/18 09:35 09/01/18 10:26 Urine Opiates Screen Negative Urine Barbiturates Screen Negative Ur Tricyclic Antidepressants Screen Negative Urine Phencyclidine Screen Negative Urine Amphetamines Screen Negative Urine Benzodiazepines Screen Negative Urine Cocaine Screen Negative Urine Cannabinoids Screen Negative White Blood Count 5.2 k/uL (4.5-11.0) Red Blood Count 5.82 M/uL (4.00-5.60) Hemoglobin 17.0 g/dL (14.0-18.0) Hematocrit 49.0 % (42.0-52.0) Mean Corpuscular Volume 84.1 fL (80.0-96.0) Mean Corpuscular Hemoglobin 29.2 pg (26.0-33.0) Mean Corpuscular Hemoglobin Concent 34.7 g/dL (32.0-36.0) Red Cell Distribution Width 14.1 % (11.5-14.5) Platelet Count 268 K/uL (150-450) Mean Platelet Volume 8.6 fL (7.2-11.1) Neutrophils (%) (Auto) 58.1 % (39.4-72.5) Lymphocytes (%) (Auto) 27.3 % (17.6-49.6) Monocytes (%) (Auto) 6.7 % (4.1-12.4) Eosinophils (%) (Auto) 7.4 % (0.4-6.7) Basophils (%) (Auto) 0.5 % (0.3-1.4) Nucleated RBC Relative Count (auto) 0.1 /100WBC Neutrophils # (Auto) 3.0 K/uL (2.0-7.4) Lymphocytes # (Auto) 1.4 K/uL (1.3-3.6) Monocytes # (Auto) 0.3 K/uL (0.3-1.0) Eosinophils # (Auto) 0.4 K/uL (0.0-0.5) Basophils # (Auto) 0.0 K/uL (0.0-0.1) Nucleated RBC Absolute Count (auto) 0.00 K/uL Glomerular Filtration Rate Calc > 60.0 Calcium Level 8.8 mg/dl (8.4-10.2) Magnesium Level 2.0 mg/dl (1.7-2.2) Total Bilirubin 0.4 mg/dl (0.2-1.3) Aspartate Amino Transf (AST/SGOT) 72 U/L (0-35) Alanine Aminotransferase (ALT/SGPT) 70 U/L (0-56) Alkaline Phosphatase 83 U/L (0-126) Total Protein 8.1 g/dl (6.3-8.2) Albumin 4.8 g/dl (3.5-5.0) Salicylates Level < 10 mg/L Salicylate Last Dose Date unk Acetaminophen Level < 10 ug/ml Serum Alcohol < 10 mg/dl Urine Color Yellow Urine Clarity Clear Urine pH 7.0 pH (4.8-9.5) Urine Specific Adrian 1.028 Urine Protein 30 mg/dL (NEGATIVE) Urine Glucose (UA) Negative mg/dL (NEGATIVE) Urine Ketones Negative mg/dL (NEGATIVE) Urine Blood Negative (NEGATIVE) Urine Nitrite Negative (NEGATIVE) Urine Bilirubin Small (NEGATIVE) Urine Urobilinogen 0.2 mg/dL (0.2-1.9) Urine Leukocyte Esterase Negative (NEGATIVE) Urine RBC None /HPF (0-2/HPF) Urine WBC None /HPF (0-5/HPF) Urine Squamous Epithelial Cells Few /LPF (</=FEW) Urine Bacteria Negative /HPF (NONE-FEW) Urine Mucus Few /HPF (NONE-FEW) Toxicology Test 09/01/18 09:18 09/01/18 09:35 Urine Opiates Screen Negative Urine Barbiturates Screen Negative Ur Tricyclic Antidepressants Screen Negative Urine Phencyclidine Screen Negative Urine Amphetamines Screen Negative Urine Benzodiazepines Screen Negative Urine Cocaine Screen Negative Urine Cannabinoids Screen Negative Salicylates Level < 10 mg/L Salicylate Last Dose Date unk Acetaminophen Level < 10 ug/ml Serum Alcohol < 10 mg/dl Urinalysis Test 09/01/18 10:26 Urine Color Yellow Urine Clarity Clear Urine pH 7.0 pH (4.8-9.5) Urine Specific Adrian 1.028 Urine Protein 30 mg/dL (NEGATIVE) Urine Glucose (UA) Negative mg/dL (NEGATIVE) Urine Ketones Negative mg/dL (NEGATIVE) Urine Blood Negative (NEGATIVE) Urine Nitrite Negative (NEGATIVE) Urine Bilirubin Small (NEGATIVE) Urine Urobilinogen 0.2 mg/dL (0.2-1.9) Urine Leukocyte Esterase Negative (NEGATIVE) Urine RBC None /HPF (0-2/HPF) Urine WBC None /HPF (0-5/HPF) Urine Squamous Epithelial Cells Few /LPF (</=FEW) Urine Bacteria Negative /HPF (NONE-FEW) Urine Mucus Few /HPF (NONE-FEW) ED Course/Re-evaluation ED Course 09/01/2018 9:46:01 am plan at this time will be medical screening exam, lab wor k and then assessment for admission for alcohol detox. Decision to Disposition Date: Sep 01, 2018 Decision to Disposition Time: 11:12 Depart Departure Latest Vital Signs Vital Signs Date Time Temp Pulse Resp B/P (MAP) Pulse Ox O2 Delivery O2 Flow Rate FiO2 09/01/18 12:16 98.4 71 16 155/99 (117) 96 Room Air Impression: Primary Impression: Alcohol use disorder, severe, dependence Condition: Improved Disposition: XFER TO [facility] (To Beau Gardner) FREDDIE MURPHY MD Sep 01, 2018 09:35
[2018-09-01 09:56] LABS: PLATELET COUNT, AUTOMATED 268 K/uL (150-450)
[2018-09-01 12:16] VITALS: BP 155/99
== END 2018-09-01 12:17 ==
LOC: ER 09:22
DX: F10.20 Alcohol dependence, uncomplicated (principal); E03.9 Hypothyroidism, unspecified
CPT/HCPCS: 80305; 80320; 80329; 81001; 82040; 82247; 82310; 82374; 82435; 82565; 82947; 83735; 84075; 84132; 84155; 84295; 84443; 84450; 84460; 84520; 85025; 99284

== ENCOUNTER 2018-09-01 11:33 | Inpatient (IN) | payer OTHER ==
[~2018-09-01] VITALS: Ht 177.8 cm; Wt 78.5 kg
[2018-09-01 12:20] VITALS: BP 172/102
[2018-09-01] MEDS ORDERED: MAG HYD/AL HYD/SIMETH 30ML UDC PO PRN (12:50)
[2018-09-01] MEDS: DIAZEPAM 10 MG TAB PO PRN ×7 (13:03→21:48)
[2018-09-01 17:15] VITALS: BP 148/96
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
[2018-09-01 21:34] VITALS: BP 118/88
--- NOTE | 2018-09-01 21:49 | NUR ---
Pt. refuses wedge O2 sats @96%
[2018-09-02 05:00] VITALS: BP 116/76
[2018-09-02] MEDS: LEVOTHYROXINE SOD 0.1 MG TAB PO SCH (05:21)
[2018-09-02 06:38] LABS: PLATELET COUNT, AUTOMATED 207 K/uL (150-450)
[2018-09-02] MEDS: MULTIVITAMINS PO SCH (08:17)
[2018-09-02] MEDS: THIAMINE HCL 100 MG TAB PO SCH (08:17)
[2018-09-02] MEDS: PROPRANOLOL HCL LA 80 MG CAPCR PO SCH (08:17)
[2018-09-02] MEDS: buPROPion IR 100 MG TAB PO SCH (08:17)
[2018-09-02] MEDS: FOLIC ACID 1 MG TAB PO SCH (08:17)
[2018-09-02 09:00] VITALS: BP 128/92
[2018-09-02] MEDS: DIAZEPAM 10 MG TAB PO PRN ×3 (09:33→21:11)
--- NOTE | 2018-09-02 11:10 | BHS Progress Note ---
[facility] - Subjective Progress Notes Subjective 'I'm doing better". Fine tremor, some nausea, denies vomiting or diarrhea Denies depression or thoughts of hurting self Denies anxiety or anger. Slept well last pm CIWA score = 12, continue [facility] protocol for alcohol withdrawal symptoms Mil taken for alcohol withdrawal symptoms x 1 month, last taken in June reports causing exacerbation of asthma Suicidal Ideation: None Homicidal Ideation: None [facility] - Objective Physical Exam Vital Signs Vital Signs Date Time Temp Pulse Resp B/P (MAP) Pulse Ox O2 Delivery O2 Flow Rate FiO2 09/02/18 09:00 97.8 78 16 128/92 (104) 93 Room Air Muscle Strength and Tone: WNL Gait and Station: Steady [facility] Medications Reviewed: Side Effects, Benefits of Medication, Risks Allergies Reviewed: No Mental Status Exam General Appearance: Casual, Well Groomed, Good Eye Contact, Cooperative, Polite, Good Interaction; No Unkept, No Tearful; Psychomotor Agitation (consistent with alcohol withdrawal); No Psychomotor Retardation Speech: Clear, Spontaneous, Normal Rate, Normal Rhythm, Normal Volume, Normal Tone; No Delayed, No Slurred, No Garbled, No Rambling, No Inappropriate Mood: Euthymic (mostly euthymic, smiling and interacting well with team members ) Affect: Full and Appropriate, Calm; No Sad, No Neutral, No Flat, No Withdrawn, No Tearful, No Anxious, No Agitated Thought Process: Organized, Logical, Goal Directed; No Loose Associations, No Flight of Ideas Thought Content: No Suicidal Ideation, No Homicidal Ideation, No Delusions, No Auditory Halllucinations, No Visual Hallucinations, No Thought Broadcasting, No Ideas of Reference, No Obsessions, No Compulsions Sensorium: Clear Cognition: Alert & Oriented-Person, Alert & Oriented-Place, Alert & Oriented- Time, Pmlro-Cetszalh-Lgtunplwh Memory: Immediate, Recent, Remote Intelligence: Average Insight Judgment: Intact, Appropriate, Good (in absense of alcohol) Result Diagram: 09/02/1861509/02/18615 [facility] Assessment and Plan [id number] Encounter Date: Sep 02, 2018 [id number] Encounter Time: 10:30 [facility] Plan: Admit to Unit, Necessary Precautions, Individual/Group Therapy, Admin/Titrate Meds, Educate Patient Tobacco Medications: Started Multpiple Antipsychotics Used: No Problems: (1) Alcohol use disorder, severe, dependence Status: Chronic (2) Alcohol withdrawal Status: Acute (3) Persistent depressive disorder with anxious distress, currently moderate Status: Chronic Condition Continue [facility] protocol for alcohol withdrawal Encourage IOP upon discharge, agreeable Wellbutrin has been restarted, ongoing evaluation of symptoms Treatment team 09/02/18 GUILHERME GARCIA NP Sep 02, 2018 11:10
[2018-09-02] MEDS: NICOTINE POLACRILEX 2 MG GUM PO PRN ×2 (13:03→19:22)
[2018-09-02 15:33] VITALS: BP 112/60
[2018-09-02 19:30] VITALS: BP 128/94
[2018-09-03 05:57] VITALS: BP 126/91
[2018-09-03] MEDS: LEVOTHYROXINE SOD 0.1 MG TAB PO SCH (06:00)
[2018-09-03 06:17] LABS: PLATELET COUNT, AUTOMATED 195 K/uL (150-450)
[2018-09-03] MEDS: FOLIC ACID 1 MG TAB PO SCH (08:30)
[2018-09-03] MEDS: MULTIVITAMINS PO SCH (08:30)
[2018-09-03] MEDS: buPROPion IR 100 MG TAB PO SCH (08:30)
[2018-09-03] MEDS: THIAMINE HCL 100 MG TAB PO SCH (08:30)
[2018-09-03] MEDS: PROPRANOLOL HCL LA 80 MG CAPCR PO SCH (08:30)
[2018-09-03 09:45] VITALS: BP 129/98
[2018-09-03] MEDS: DIAZEPAM 10 MG TAB PO PRN ×2 (09:45→20:52)
[2018-09-03 12:55] VITALS: BP 135/98
[2018-09-03 13:55] VITALS: BP 135/98
--- NOTE | 2018-09-03 14:08 | BHS Progress Note ---
[facility] - Subjective Progress Notes Subjective Pt seen in treatment team with staff. Pt reports feeling better today in terms of withdrawal symptoms. He has had a total of 190 mg of valium so far. He scored a 10 on CIWA this am. We discussed his history with rehab admissions, AA meetings-- he is wanting to enroll in IOP program after discharge. He is c urrently in out patient therapy with Jenni Romero, and seeing Katheryn De La Garza for out patient medication management. We emphasized the utter necessity of a strong relationship with AA for him, given the severity and longstanding nature of his alcohol use disorder. Will continue to monitor CIWA scores and medicate as indicated. Suicidal Ideation: None Homicidal Ideation: None [facility] - Objective Physical Exam Vital Signs Vital Signs 09/02/18 09/03/18 15:33 09:45 Temp 98.1 Pulse 65 Resp 16 B/P (MAP) 129/98 (108) Pulse Ox 95 O2 Delivery Room Air Muscle Strength and Tone: WNL Gait and Station: Steady [facility] Medications Reviewed: Side Effects, Benefits of Medication, Risks Allergies Reviewed: Yes Mental Status Exam General Appearance: Casual, Well Groomed, Good Eye Contact, Cooperative, Polite, Good Interaction Speech: Clear, Spontaneous, Normal Rate, Normal Rhythm, Normal Volume, Normal Tone Mood: Euthymic Affect: Full and Appropriate, Calm Thought Process: Organized, Logical, Goal Directed Thought Content: No Suicidal Ideation, No Homicidal Ideation, No Delusions, No Auditory Halllucinations, No Visual Hallucinations, No Thought Broadcasting, No Ideas of Reference, No Obsessions, No Compulsions Sensorium: Clear Cognition: Alert & Oriented-Person, Alert & Oriented-Place, Alert & Oriented- Time, Bdooh-Fuspuahy-Hanvwmuqs Memory: Immediate, Recent, Remote Intelligence: Average Insight Judgment: Intact, Appropriate, Good (in absense of alcohol) Result Diagram: 09/03/1860509/03/18605 [facility] Assessment and Plan Oton-[id number] Encounter Date: Sep 03, 2018 Guli-mq-Qwor Encounter Time: 09:30 [facility] Plan: Admit to Unit, Necessary Precautions, Individual/Group Therapy, Admin/Titrate Meds, Educate Patient Tobacco Medications: Started Multpiple Antipsychotics Used: No Problems: (1) Alcohol use disorder, severe, dependence Status: Chronic (2) Alcohol withdrawal Status: Acute BENNY FOSTER MD Sep 03, 2018 14:08
[2018-09-03] MEDS: NICOTINE POLACRILEX 2 MG GUM PO PRN (14:43)
[2018-09-03 18:00] VITALS: BP 142/105
[2018-09-04 05:56] VITALS: BP 128/77
[2018-09-04] MEDS: LEVOTHYROXINE SOD 0.1 MG TAB PO SCH (06:30)
[2018-09-04] MEDS: MULTIVITAMINS PO SCH (08:27)
[2018-09-04] MEDS: buPROPion IR 100 MG TAB PO SCH (08:27)
[2018-09-04] MEDS: PROPRANOLOL HCL LA 80 MG CAPCR PO SCH (08:27)
[2018-09-04] MEDS: THIAMINE HCL 100 MG TAB PO SCH (08:27)
[2018-09-04] MEDS: FOLIC ACID 1 MG TAB PO SCH (08:27)
[2018-09-04] MEDS: NICOTINE POLACRILEX 2 MG GUM PO PRN ×2 (10:15→16:08)
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
[2018-09-04] MEDS ORDERED: LEVO125T77 PO (13:34)
[2018-09-04] MEDS ORDERED: NICO-219 BC (13:35)
[2018-09-04] MEDS ORDERED: ACAM333T3 PO (13:36)
== END 2018-09-04 17:20 | disposition home or self-care (01) | DRG 897 ==
LOC: BHS 11:33
PROVIDERS: ADMIT Nurse Practitioner Psychiatric/Mental Health; ATTEND Nurse Practitioner Psychiatric/Mental Health
DX: F10.230 Alcohol dependence with withdrawal, uncomplicated (principal); F17.220 Nicotine dependence, chewing tobacco, uncomplicated; F41.8 Other specified anxiety disorders; Z88.8 Allergy status to other drugs, medicaments and biological substances; Z81.1 Family history of alcohol abuse and dependence; Y90.0 Blood alcohol level of less than 20 mg/100 ml
CPT/HCPCS: 36415; 82040; 82247; 82310; 82374; 82435; 82565; 82947; 84075; 84132; 84155; 84295; 84439; 84450; 84460; 84481; 84520; 85025